=== PATIENT | male | born 1950 | race Caucasian/White ===

== ENCOUNTER → 2017-01-02 | Outpatient (CLI) | payer OTHER ==
[~2017-01-02] MED LIST: ASPEC81 PO; COEN100C11 PO; CYAN10005 PO; DOXA2TAB PO; FLNIN NAE; INSU1.2I SC; METF500T5 PO; METO50TA16 PO; MULT-513 PO; NVLGI SC; VALS320T2 PO; VITA400C15 PO
[2017-01-02 12:11] LABS: BASO % 0.9 %; BASO ABS # 0.05 K/uL (0-0.2); COMPLETE YES; EOS % 2.6 %; HEMATOCRIT 42.9 % (42-52); IG% 0.2 %; LYMPH % 35.9 %; LYMPH ABS # 1.96 K/uL (1.2-3.4); MEAN CELL VOLUME 92.1 fL (80-100); MEAN CORPUSCULAR HEMOGLOBIN 31.5 pg (25-34); MEAN CORPUSCULAR HGB CONC 34.3 g/dl (32-36); MEAN PLATELET VOLUME 11.3 fL (7.4-10.4); MONO % 5.9 %; NEUT % 54.5 %; PLATELET COUNT 139 K/uL (130-400); RED BLOOD COUNT 4.66 M/uL (4.7-6.1); WHITE BLOOD COUNT 5.46 K/uL (4.8-10.8)
[2017-01-02 13:08] LABS: ESTIMATED AVERAGE GLUCOSE 148 mg/dl; HA1C FLAG Normal (Normal)
[2017-01-02 14:01] LABS: ALB/GLOB RATIO 1.1 (0.9-2); ALKALINE PHOSPHATASE 46 U/L (45-117); ALT/SGPT 208 U/L (12-78); BLOOD UREA NITROGEN 24 mg/dl (7-18); BUN/CREATININE RATIO 20.1 (10-20); CALCIUM 9.3 mg/dl (8.5-10.1); CARBON DIOXIDE 26 mmol/L (21-32); CHLORIDE 105 mmol/L (98-107); GLUCOSE 161 mg/dl (70-99); HDL CHOLESTEROL 36 mg/dl; POTASSIUM 4.5 mmol/L (3.5-5.1); SODIUM 139 mmol/L (136-145); TRIGLYCERIDES 380 mg/dl (0-150); VERY LOW DENSITY LIPOPROT CALC 76 mg/dl
[2017-01-02 14:11] LABS: AST/SGOT 106 U/L (15-37); CHOLESTEROL 213 mg/dl (0-200); CHOLESTEROL/HDL RATIO 5.9
[2017-01-02 17:19] LABS: RATIO 18.8 mcg/mg (0-30.0)
--- NOTE | 2017-01-08 11:22 | CODING QUERY MEDICAL NECESSITY ---
CQSUPPORTING DIAGNOSIS NEEDED A supporting diagnosis is required for the test/procedure performed on this patient in order for us to be reimbursed by the patient's insurance. Please provide a supporting diagnosis for the following test/procedure listed below next to the test name along with your signature. *If there is no additional diagnosis for this patient that would support the following test/procedure please document that below next to the test/procedure. Test(s)/Procedure(s) that require a supporting diagnosis: DOS 01/02/17 VITAMIN D TEST Provider Signature: Date: Thank you Valentina Tilley [facility] Information Management Once completed, please kindly fax back to [phone] For questions please call [phone]
== END | disposition home or self-care (01) ==
LOC: C.LAB1850 09:54
PROVIDERS: ATTEND Nurse Practitioner Adult Health
DX: R80.9 Proteinuria, unspecified (principal); C85.90 Non-Hodgkin lymphoma, unspecified, unspecified site; I10 Essential (primary) hypertension; E78.00 Pure hypercholesterolemia, unspecified; E11.21 Type 2 diabetes mellitus with diabetic nephropathy; E55.9 Vitamin D deficiency, unspecified

== ENCOUNTER → 2017-01-29 | Outpatient (CLI) | payer OTHER ==
[~2017-01-29] MED LIST changes: +OPTIRAY 320 IV PRN
--- NOTE | 2017-01-29 07:28 | DIAGNOSTIC IMAGING REPORT ---
CT SOFT TISSUE NECK COMBO CT DOSE: 1172.35 mGy.cm CLINICAL HISTORY: Right-sided neck mass. Large B-cell lymphoma. TECHNIQUE: Unenhanced images were obtained through the neck. The images were then repeated in a dynamic helical fashion during intravenous administration of 93 cc of Optiray 320. COMPARISON STUDY: PET/CT scan dated 12/16/2012 FINDINGS: Unenhanced images reveal no calcifications suspicious for salivary gland calculi. On the postcontrast study, the lung apices are unremarkable. The thyroid appears unremarkable. No salivary gland masses are visualized. There is thickening of the fascia surrounding the lateral margin of the right parotid gland. This remains unchanged the prior PET/CT scan. The visualized portions of the intracranial contents are unremarkable. No mucosal space masses are visualized. There are no pathologically enlarged lymph nodes. No necrotic nodes are visualized. There is no evidence of airway compromise. There are no CT masses to explain the patient's report will palpable right supra clavicular mass. IMPRESSION: 1. Stable thickening of the fascia surrounding the right parotid gland 2. No pathologic masses identified. No evidence of pathologic adenopathy. Electronically signed by: Jordan Chang M.D. 01/29/2017 7:26 AM Dictated Date/Time: 01/29/2017 7:21 AM
== END | disposition home or self-care (01) ==
LOC: C.CTS 06:46
PROVIDERS: ATTEND Physician Assistant
DX: R22.1 Localized swelling, mass and lump, neck (principal)

== ENCOUNTER → 2017-04-16 | Outpatient (CLI) | payer OTHER ==
[~2017-04-16] MED LIST changes: -OPTIRAY 320 IV PRN
[2017-04-16 11:39] LABS: ESTIMATED AVERAGE GLUCOSE 134 mg/dl; HA1C FLAG Normal (Normal)
== END | disposition home or self-care (01) ==
LOC: C.LABBC 08:41
PROVIDERS: ATTEND Nurse Practitioner Adult Health
DX: E11.29 Type 2 diabetes mellitus with other diabetic kidney complication (principal); E78.5 Hyperlipidemia, unspecified

== ENCOUNTER → 2017-05-15 | Outpatient (CLI) | payer OTHER ==
[2017-05-15 09:51] LABS: ALT/SGPT 108 U/L (12-78); AST/SGOT 48 U/L (15-37)
== END | disposition home or self-care (01) ==
LOC: C.LAB1850 07:58
PROVIDERS: ATTEND Nurse Practitioner Adult Health
DX: K76.0 Fatty (change of) liver, not elsewhere classified (principal)

== ENCOUNTER → 2017-09-14 | Outpatient (CLI) | payer OTHER ==
[2017-09-14 10:57] LABS: BASO % 0.9 %; BASO ABS # 0.05 K/uL (0-0.2); EOS % 3.2 %; EOS ABS # 0.18 K/uL (0-0.5); HEMATOCRIT 45.1 % (42-52); HEMOGLOBIN 15.6 g/dL (14.0-18.0); IG# 0.02 K/uL (0.00-0.02); LYMPH % 29.8 %; LYMPH ABS # 1.69 K/uL (1.2-3.4); MEAN CELL VOLUME 91.7 fL (80-100); MEAN CORPUSCULAR HEMOGLOBIN 31.7 pg (25-34); MEAN CORPUSCULAR HGB CONC 34.6 g/dl (32-36); MEAN PLATELET VOLUME 11.1 fL (7.4-10.4); MONO % 8.8 %; NEUT % 56.9 %; NEUT ABS # 3.23 K/uL (1.4-6.5); PLATELET COUNT 130 K/uL (130-400); RED CELL DISTRIBUTION WIDTH CV 13.3 % (11.5-14.5); RED CELL DISTRIBUTION WIDTH SD 44.4 fL (36.4-46.3); WHITE BLOOD COUNT 5.67 K/uL (4.8-10.8)
[2017-09-14 11:22] LABS: HEMOGLOBIN A1C 7.4 % (4.5-5.6)
== END | disposition home or self-care (01) ==
LOC: C.LABBC 08:23
PROVIDERS: ATTEND Internal Medicine
DX: M62.838 Other muscle spasm (principal); M60.9 Myositis, unspecified

== ENCOUNTER → 2017-10-04 | Outpatient (CLI) | payer OTHER ==
[2017-10-04 11:20] LABS: ALT/SGPT 182 U/L (12-78); AST/SGOT 80 U/L (15-37); BLOOD UREA NITROGEN 24 mg/dl (7-18); CALCIUM 9.6 mg/dl (8.5-10.1); CARBON DIOXIDE 27 mmol/L (21-32); CREATININE 1.07 mg/dl (0.60-1.40); GLUCOSE 189 mg/dl (70-99); SODIUM 136 mmol/L (136-145)
[2017-10-04 11:24] LABS: ALKALINE PHOSPHATASE 46 U/L (45-117); TOTAL PROTEIN 7.6 gm/dl (6.4-8.2)
--- NOTE | 2017-10-04 11:37 | DIAGNOSTIC IMAGING REPORT ---
BILIARY ULTRASOUND CLINICAL HISTORY: R74.0 Elevated transaminase [id number] COMPARISON STUDY: April 11, 2011 FINDINGS: The liver is of increased echogenicity, nonspecific finding most often seen in hepatic steatosis. There is suspected focal fatty sparing adjacent to gallbladder. There is no ductal dilatation. The common bile duct measures 6 mm. No pancreatic masses are visualized. No gallstones are visualized. There is no right-sided hydronephrosis. IMPRESSION: 1. Increased hepatic echogenicity, nonspecific finding most often seen in hepatic steatosis 2. No evidence of ductal dilatation 3. No gallstones identified Electronically signed by: Jordan Chang M.D. 10/04/2017 11:36 AM Dictated Date/Time: 10/04/2017 11:34 AM
[2017-10-04 12:09] LABS: HEP C IGG 13 YRS+OLDER_RFLX NEG (NEG)
== END | disposition home or self-care (01) ==
LOC: C.ULTR 09:53
PROVIDERS: ATTEND Nurse Practitioner Adult Health
DX: R74.0 Nonspecific elevation of levels of transaminase and lactic acid dehydrogenase [LDH] (principal)